=== PATIENT | male | born 1995 | race Caucasian/White ===

== ENCOUNTER 2020-07-25 12:26 | Emergency (ER) | payer SELFPAY ==
[2020-07-25 12:43] VITALS: BP 127/76; PULSE 81; RESP 16; TEMP 36.8; O2SAT 97; BMI 35.5
--- NOTE | 2020-07-25 14:23 | PC.NURSE ---
Pt taken to room, noted to ambulate from wheelchair to room bed without difficulty or assistance. Call light in reach, mother at bedside.
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
[2020-07-25 14:34] VITALS: BP 128/76; PULSE 72; RESP 18; O2SAT 96
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
[2020-07-25 14:53] LABS: Basophils # 0.1 10^3/uL (0.0-0.1); Eosinophils # 0.2 10^3/uL (0.0-0.8); Hematocrit 47.4 % (42.0-52.0); Hemoglobin 15.2 g/dL (11.7-16.6); Lymphocytes # 2.3 10^3/uL (0.8-4.8); Lymphocytes % 25.9 %; Mean Corpuscular HGB Conc 32.1 g/dL (30.0-36.0); Mean Corpuscular Hemoglobin 29.5 pg (28.0-34.0); Mean Platelet Volume 10.3 fL (7.4-10.4); Monocytes # 0.8 10^3/uL (0.2-0.9); Monocytes % 8.9 %; Nucleated Red Blood Cells % 0 %; Platelet Count 316 10^3/cmm (130-400); Red Blood Count 5.15 10^6/uL (4.1-5.3); Red Cell Distribution Width 12.8 % (12.1-15.1); White Blood Count 8.9 10^3/uL (4.0-10.0)
[2020-07-25 15:00] LABS: Add Urine Microscopic? NO
[2020-07-25 15:05] LABS: Bilirubin Urine Neg (NEGATIVE); Blood Urine Neg (Negative); Glucose Urine UA Norm (Normal); Ketones Urine Negative (Negative); Leukocyte Esterase Urine Negative (Negative); Nitrate Urine Negative (Negative); Protein Urine Neg (Negative); Urine Appearance Clear (CLEAR); Urine Color Yellow (Yellow); Urobilinogen Urine Norm (Negative); pH Urine 6.5 (5-7)
[2020-07-25 15:18] LABS: Alanine Aminotransferase 32 U/L (0-41); Albumin Level 4.7 g/dL (3.5-5.2); Alkaline Phosphatase 76 IU/L (40-130); Anion Gap 15.3 (5-19); Aspartate Amino Transferase 29 U/L (0-40); Blood Urea Nitrogen 13 mg/dL (6-20); Calcium 9.6 mg/dL (8.5-10.5); Carbon Dioxide 26 mmol/L (22-29); Chloride 102 mmol/L (98-107); Globulin 3.7 g/dL (1.3-4.6); Glomerular Filtration Rate 120.9 mL/min (90-130); Glucose 119 mg/dL (65-115); Osmolality Calculated 285 mOsm/kg (285-295); Potassium 4.3 mmol/L (3.5-5.1); Sodium 139 mmol/L (136-145); Total Bilirubin 0.4 mg/dL (0.15-1.2); Total Protein 8.4 g/dL (6.6-8.7)
[2020-07-25 16:03] VITALS: BP 104/60; PULSE 55; RESP 18; O2SAT 97
[2020-07-25 16:54] VITALS: BP 144/69; PULSE 71; RESP 17; O2SAT 98
== END 2020-07-25 16:54 | disposition home or self-care (01) ==
PROVIDERS: Emergency Provider Family Medicine
DX: M54.5 Low back pain (principal)
CPT/HCPCS: 12345; 72131; 80053; 81003; 85025; 99282; 99283

== ENCOUNTER → 2023-10-15 14:48 | Outpatient (BNVA) | payer BC, SELFPAY | PROVIDERS: Visit Provider Registered Nurse Neonatal Intensive Care | DX: J02.9 Acute pharyngitis, unspecified (principal); J03.80 Acute tonsillitis due to other specified organisms; B96.89 Other specified bacterial agents as the cause of diseases classified elsewhere | CPT/HCPCS: 87071; 87880 ==